=== PATIENT | female | born 1960 | race Two or more races ===

== ENCOUNTER 2018-07-14 07:52 | Day surgery (SDC) | payer OTHER ==
[~2018-07-14 07:52] MED LIST: DEXTROSE 5%-LR 1,000 ML IV
[2018-07-14] MEDS ORDERED: PROPOFOL 20 ML (10:07)
[2018-07-14] MEDS ORDERED: FENTAnyl 50 MCG/ML VIAL (10:07)
[2018-07-14] MEDS ORDERED: ONDANSETRON 4 MG INJ (10:07)
[2018-07-14] MEDS ORDERED: METOCLOPRAMIDE 10 MG INJ (10:07)
[2018-07-14] MEDS ORDERED: CEFAZOLIN 1 GM INJ (10:22)
[2018-07-14] MEDS ORDERED: OXYCODONE/ACETAMINOPHEN (5/325) TAB PO (10:30)
[2018-07-14] MEDS ORDERED: DIPHENHYDRAMINE 50 MG INJ IV (10:30)
[2018-07-14] MEDS ORDERED: MEPERIDINE 25 MG INJ IV (10:30)
[2018-07-14] MEDS ORDERED: HYDROmorphONE 1 MG/5 ML IV SYRINGE IV ×3 (10:30)
[2018-07-14] MEDS ORDERED: ONDANSETRON 4 MG INJ IV (10:30)
[2018-07-14] MEDS: KETOROLAC 30 MG INJ IV (11:29)
== END 2018-07-14 12:20 | disposition home or self-care (01) ==
LOC: SDS 07:52
DX: N85.00 Endometrial hyperplasia, unspecified (principal); D25.9 Leiomyoma of uterus, unspecified; R73.03 Prediabetes; N81.10 Cystocele, unspecified
CPT/HCPCS: 58558; 88305; 93005